=== PATIENT | male | born 1990 | race Two or more races ===

== ENCOUNTER 2017-09-23 09:09 | Outpatient (CLI) | payer OTHER | END 2017-09-23 09:10 | disposition home or self-care (01) | LOC: SC 09:09 | PROVIDERS: ATTEND Internal Medicine Pulmonary Disease | DX: G47.30 Sleep apnea, unspecified (principal); G47.10 Hypersomnia, unspecified; R06.83 Snoring; G47.8 Other sleep disorders | CPT/HCPCS: 99203; 99212 ==

== ENCOUNTER 2020-11-30 14:48 | Outpatient (CLI) | payer OTHER ==
[2020-11-30 15:28] VITALS: BP 122/77
--- NOTE | 2020-11-30 15:28 | SLEEP CARE CONSULTATION ---
Information from patient questionnaire entered by Connie Simon. I have reviewed and concur with the information entered by Connie Simon. This document represents the service I personally performed and the decisions made by me, Nneka Carranza ARNP. History of Present Illness Service Date and Time: 11/30/2020 1448 Reason for Visit: New patient, [facility] ([facility]) Chief Complaint: reports: Other (Referral from [facility]). denies: Unrefreshed sleep, Snoring, Excessive daytime sleepiness, Observed pauses in breathing, Fatigue, Frequent awakenings at night Date of Onset: No longer existent Usual bedtime: 9:30 PM Time it takes to fall asleep: Immediately Snores at night: No Observed to quit breathing while asleep: No Sleeps alone due to snoring: No Number of times waking at night: 0 Reasons for waking at night: reports: Other (n/a). denies: Choking, Snoring, Gasping for air Toss, Turn, or Twitch while sleeping: No Recalls having dreams: Yes Usually gets out of bed at: 5:00 AM Feels refreshed in the morning: Yes Morning headache: No Sleepy or fatigued during the day: No Ever fallen asleep while driving: No Takes day naps: No Dreams during day naps: No Prior sleep studies: No Additional HPI information: KAT MCCLELLAND was seen 3 years ago by referral due to lack of focus and tired all the time. He states that he was going through divorce at the time and was very stressed. He saw a doctor and was told he did not need sleep study or sleep apnea. He has an open referral here and he needs to close this out of his record. He feels he gets good sleep. He does not snore, he has no observed pauses in breathing, he feels rested in the mornings and he feels like he has energy during the day and is not sleepy/tired. He feels all of the symptoms he had with previous visit have all resolved and were due to his life stresses at that time. 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 Nasreen walters is and lives in [place]. Have you smoked in the past 12 months: No Alcohol use: Yes Alcohol amount and frequency: Glass of wine 1 - 2 x a month Caffeine use: Yes Caffeine amount and frequency: Cup a day Family History Family history of sleep disordered breathing: No Family Hx Sleep Apnea: Grandparent: Snoring Allergies and Home Medications Drug allergies reviewed: Yes (NKDA) Home medication list reviewed: Yes (Vitamin D) Review of Systems Cardiovascular: denies: high blood pressure Gastrointestinal: denies: heartburn Neurological: denies: headaches, head trauma Psychiatric: reports: anxiety. denies: depression, mood disorder Ear/Nose/Throat: reports: wisdom teeth removed. denies: dry mouth/throat, injury to nose, tonsillectomy Immunologic: denies: allergies to food or environment Physical Exam Blood Pressure: 122/77 Cuff size: wrist Heart Rate: 70 O2 Saturation: 98 Height: 5 ft 9 in Weight: 159 lb Body Mass Index: 23.4 BMI Classification: Healthy weight Neck circumference: 14.4 (inches) Nostrils: patent to airflow Mouth and throat: narrow oropharynx Soft palate: long Hard palate: arched Uvula visualization: 25% Mallampati Class III Tongue: normal in size Tonsils: 2+ Neck: normal w/o lymphadenopathy or thyromegaly Heart: regular rate and rhythm Lungs: clear bilaterally Impression and Plan 1. Suspected Obstructive Sleep Apnea-Hypopnea Syndrome in 2017. He was seen in 2017 in this office, but apparently did not get tested. He states the doctor he saw told him he did not have sleep apnea. He returned today because there is an open referral for sleep evaluation. He states he does not have loud and irregular snoring, observed cessation of breath while asleep, gasping or choking in sleep, morning headache, frequent awakening during the night, unrefreshed sleep, cognitive impairment, or excessive daytime sleepiness. He states last time he was only concerned with the lack of concentration and fatigue he was having. He was going through a divorce at the time and was very stressed out. He states all his previous fatigue and concentration issues have resolved and he no longer snores. I do not find enough risks or pertinent evidence of possible obstructive sleep apnea at this time. I do not think we need to move forward with a sleep study as he does not qualify for a PSG or HST based upon his presenting symptoms today. * No PSG or HST needed at this time * Return as needed. Visit Type: In Office Time Spent with Patient (minutes): 21 Provider Statement: I spent 100% of the Face to Face Visit with the patient with greater than 50% spent counseling the patient and coordination of care.
== END 2020-11-30 14:49 | disposition home or self-care (01) ==
LOC: SC 14:48
PROVIDERS: ATTEND Nurse Practitioner Family
DX: R53.83 Other fatigue (principal)
CPT/HCPCS: 99202; 99212